=== PATIENT | female | born 1945 | race Two or more races ===

== ENCOUNTER 2021-09-12 08:16 | Outpatient (CLI) | payer OTHER | END 2021-09-12 08:29 | disposition home or self-care (01) | LOC: TOM 08:16 | PROVIDERS: ATTEND Internal Medicine Gastroenterology | DX: J44.9 Chronic obstructive pulmonary disease, unspecified (principal); Z80.0 Family history of malignant neoplasm of digestive organs ==

== ENCOUNTER 2021-09-26 07:45 | Outpatient (CLI) | payer OTHER | END 2021-09-26 07:47 | disposition home or self-care (01) | LOC: RX STUDY 07:45 | PROVIDERS: ATTEND Internal Medicine Gastroenterology | DX: R10.13 Epigastric pain (principal) ==

== ENCOUNTER 2023-12-18 14:39 | Inpatient (IN) | payer OTHER ==
[~2023-12-18] VITALS: Ht 157.5 cm; Wt 56.7 kg
[2023-12-18] MEDS ORDERED: LOSARTAN POTASS50 MG (14:57)
[2023-12-18] MEDS ORDERED: PREVACID30 M1 (14:57)
[2023-12-18] MEDS ORDERED: LEVO-T25 MCG (14:57)
[2023-12-18] MEDS ORDERED: GLUMETZA500 MG (14:57)
[2023-12-18] MEDS ORDERED: ROSUVASTATIN CA20 MG (14:57)
--- NOTE | 2023-12-18 14:58 | NUR ---
PTE ALERTA Y ORIENTADA X3 SE RECIBE EN [place] LO CUAL REFIERE QUE ES PTE DE TRANSFER PARA EL DOCTOR REDDY. REFIERE QUE NIA TUVO ALAINA CAIDA Y SE LASTIMO CADERA Y TOBILLO DERECHO. SE LE NELLA S/V Y SE UBICA
[2023-12-18] MEDS ORDERED: MORPHINE SULFATE 4 MG/ML CARTRIDGE IV PRN (21:00)
[2023-12-18] MEDS ORDERED: 0.9 % SODIUM CHLORIDE 1,000 ML IV SCH (21:00)
[2023-12-18] MEDS ORDERED: ACETAMINOPHEN 500 MG GEL..CAP PO PRN (21:00)
[2023-12-19 04:15] LABS: INR 1.2; PARTIAL THROMBOPLASTIN TIME 29.8 SECONDS (22.0-34.0); PROTHROMBIN TIME 12.9 SECONDS (9.0-11.5)
[2023-12-19 04:19] LABS: ALBUMIN 3.3 gm/dL (3.4-5.0); BILIRUBIN TOTAL 1.57 mg/dL (0.3-1.2); CALCIUM 8.9 mg/dL (8.5-10.1); CREATININE SERUM 0.74 mg/dL (0.55-1.02); GFR 76.1; GLOBULINA 3.4 G/DL (2.4-3.5); POTASSIUM 4.25 mEq/L (3.5-5.1); TOTAL PROTEIN 6.7 gm/dL (6.4-8.2)
[2023-12-19 04:27] LABS: HEMATOCRIT 39.8 % (36.0-45.00); HEMOGLOBIN 13.3 g/dL (12.0-15.00); MEAN CELL VOLUME 81.1 fL (80.00-100.00); MEAN CORPUSCULAR HEMOGLOBIN 27.2 pg (27.00-32.0); MEAN CORPUSCULAR HGB CONC 33.5 g/dl (32.0-36.0); PLATELET COUNT 233 K/uL (150-450); RED CELL DISTRIBUTION WIDTH 13.9 % (11.5-14.5)
[2023-12-19 06:09] VITALS: BP 123/59; O2SAT 99
[2023-12-19 06:21] LABS: PH,URINE 5.5 (5.0-8.0); URINE APPEARANCE Clear; URINE BILIRRUBIN Negative (NEGATIVE); URINE BLOOD Trace; URINE COLOR Yellow; URINE GLUCOSE Negative (NEGATIVE); URINE KETONE 15 (NEGATIVE); URINE LEUKOCYTE Small; URINE NITRATE Negative; URINE PROTEIN Negative (NEGATIVE)
[2023-12-19 06:25] LABS: URINE BACTERIA 45.3 uL (0.0-1933); URINE EPITHELIAL CELLS 2.7 uL (0.0-38.8); URINE RBC 67.6 uL (0.0-20.8); URINE WBC 10.1 uL (0.0-23.2)
[2023-12-19] MEDS ORDERED: IRON FUM,PS/FOLIC/BCOMP,C NO.9 1 CAP CAPSULE PO SCH (09:00)
[2023-12-19] MEDS ORDERED: FAMOTIDINE/PF 20 MG in 0.9 % SODIUM CHLORIDE 8 ML IV PUSH SCH (09:00)
[2023-12-19] MEDS ORDERED: ENOXAPARIN SODIUM 40 MG/0.4 ML SYRINGE SUBCUTANEO SCH (09:00)
[2023-12-19 09:26] LABS: ABG PH 7.435 (7.35-7.45); ABG PO2 102.5 mmHg (80-100); BASE EXCESS -1.7 mmol/l; BICARBONATE 21.7 mmol/l (23-25); Tco2 22.7 mmol/l; allen test SATISFACTORY; o2 28 %; puncture site RADIAL LEFT
[2023-12-19 10:20] VITALS: BP 143/83; O2SAT 97
[2023-12-19] MEDS ORDERED: BUDESONIDE 0.5 MG/2 ML AMPUL.NEB IH NR (11:00)
[2023-12-19] MEDS ORDERED: IPRATROPIUM/ALBUTEROL SULFATE 3 ML AMPUL.NEB IH SCH (12:00)
[2023-12-19 13:47] LABS: COL EPI 93 SECONDS (82-175)
[2023-12-19 17:32] VITALS: BP 117/61; O2SAT 97
[2023-12-19] MEDS ORDERED: BUDESONIDE 0.5 MG/2 ML AMPUL.NEB IH SCH (21:00)
[2023-12-20 00:15] VITALS: BP 105/68; O2SAT 100
[2023-12-20 10:19] VITALS: BP 155/58; O2SAT 97
[2023-12-20 16:00] VITALS: BP 126/66; O2SAT 97
[2023-12-20] MEDS ORDERED: AMINO ACIDS 1 EACH TABLET PO SCH (18:29)
[2023-12-20] MEDS ORDERED: LACTULOSE 20 G/30 ML BLIST.PACK PO ONE (19:30)
[2023-12-20] MEDS ORDERED: MAGNESIUM HYDROXIDE 30 ML BLIST.PACK PO ONE (19:30)
[2023-12-20] MEDS ORDERED: MINERAL OIL 30 ML BLIST.PACK PO ONE (19:30)
[2023-12-20] MEDS ORDERED: ACETAMINOPHEN 500 MG GEL..CAP PO SCH (20:00)
[2023-12-20 23:22] LABS: INR 1.13; PROTHROMBIN TIME 12.2 SECONDS (9.0-11.5)
[2023-12-21 00:39] VITALS: BP 114/76; O2SAT 98
[2023-12-21 08:47] VITALS: BP 134/77; O2SAT 99
[2023-12-21 18:52] VITALS: BP 151/84; O2SAT 99
[2023-12-22 00:52] VITALS: BP 131/83; O2SAT 96
[2023-12-22 06:43] LABS: INR 1.12; PROTHROMBIN TIME 12.1 SECONDS (9.0-11.5)
[2023-12-22 08:00] VITALS: BP 190/91; O2SAT 100
[2023-12-22 18:27] LABS: HEMATOCRIT 34.9 % (36.0-45.00); HEMOGLOBIN 11.5 g/dL (12.0-15.00); MEAN CELL VOLUME 81.8 fL (80.00-100.00); PLATELET COUNT 221 K/uL (150-450); RED BLOOD COUNT 4.27 M/uL (4.00-6.00); RED CELL DISTRIBUTION WIDTH 13.9 % (11.5-14.5)
[2023-12-22 18:51] LABS: ALBUMIN 2.6 gm/dL (3.4-5.0); BILIRUBIN TOTAL 0.73 mg/dL (0.3-1.2); CREATININE SERUM 0.46 mg/dL (0.55-1.02); GFR 131.72; GLOBULINA 3.2 G/DL (2.4-3.5); POTASSIUM 4.58 mEq/L (3.5-5.1); TOTAL PROTEIN 5.8 gm/dL (6.4-8.2)
[2023-12-22] MEDS ORDERED: PROMETHAZINE HCL 50 MG/ML AMPUL IM PRN (20:00)
[2023-12-22] MEDS ORDERED: MEPERIDINE HCL/PF 50 MG/ML VIAL IM PRN (20:00)
[2023-12-22] MEDS ORDERED: SODIUM CHLORIDE 0.45 % 1,000 ML IV SCH (20:00)
[2023-12-22] MEDS ORDERED: TRAMADOL HCL 50 MG TABLET PO PRN (20:00)
[2023-12-22] MEDS ORDERED: ONDANSETRON HCL 2 MG/ML VIAL IV PRN (20:00)
[2023-12-22] MEDS ORDERED: ONDANSETRON 4 MG TAB.RAPDIS PO PRN (20:00)
[2023-12-22] MEDS ORDERED: CEFAZOLIN SODIUM 1,000 MG VIAL IV ONE (21:15)
[2023-12-22] MEDS ORDERED: CIPROFLOXACIN IN 5 % DEXTROSE 400 MG/200 ML PIGGYBAG IV ONE (21:15)
[2023-12-22] MEDS ORDERED: VANCOMYCIN HCL 1,000 MG VIAL IR ONE (21:15)
[2023-12-22] MEDS ORDERED: TRANEXAMIC ACID 100MG/1ML (1000MG) AMPUL IV ONE ×2 (21:15)
[2023-12-22] MEDS ORDERED: SOD FERRIC GLUC COMPLX/SUCROSE 62.5 MG/5 ML AMPUL IV SCH (21:20)
[2023-12-22] MEDS ORDERED: SUGAMMADEX SODIUM 200 MG/2 ML VIAL IV ONE (21:30)
[2023-12-22] MEDS ORDERED: MORPHINE SULFATE 2 MG/ML CARTRIDGE IV ONE (21:55)
[2023-12-23] MEDS ORDERED: CELECOXIB 200 MG CAPSULE PO SCH (01:00)
[2023-12-23] MEDS ORDERED: CEFAZOLIN SODIUM 1,000 MG VIAL IV SCH (01:00)
[2023-12-23] MEDS ORDERED: MORPHINE SULFATE 2 MG/ML CARTRIDGE IV ONE (02:00)
[2023-12-23 03:25] VITALS: BP 137/83; O2SAT 99
[2023-12-23] MEDS ORDERED: PANTOPRAZOLE SODIUM 40 MG TABLET.DR PO SCH (09:00)
[2023-12-23] MEDS ORDERED: Cyanocobalamin/Mecobalamin 1 TAB.SL SL SCH (09:00)
[2023-12-23 09:19] VITALS: BP 106/68; O2SAT 99
[2023-12-23 09:43] VITALS: BP 106/68; O2SAT 99
[2023-12-23 17:09] VITALS: BP 108/70; O2SAT 98
[2023-12-23 23:30] VITALS: BP 91/53; O2SAT 96
[2023-12-24 07:58] LABS: HEMATOCRIT 30.8 % (36.0-45.00); HEMOGLOBIN 10.1 g/dL (12.0-15.00); MEAN CELL VOLUME 82.2 fL (80.00-100.00); MEAN CORPUSCULAR HEMOGLOBIN 26.9 pg (27.00-32.0); MEAN CORPUSCULAR HGB CONC 32.8 g/dl (32.0-36.0); PLATELET COUNT 197 K/uL (150-450); RED BLOOD COUNT 3.74 M/uL (4.00-6.00); RED CELL DISTRIBUTION WIDTH 14.1 % (11.5-14.5)
[2023-12-24 08:00] VITALS: BP 98/50; O2SAT 98
[2023-12-24] MEDS ORDERED: RIVAROXABAN 10 MG TAB PO SCH (09:00)
[2023-12-24] MEDS ORDERED: SENNA/DOCUSATE SODIUM 1 TAB TABLET PO SCH (09:00)
[2023-12-24 17:25] VITALS: BP 116/58; O2SAT 100
[2023-12-25] VITALS: BP 91/52; O2SAT 99
[2023-12-25 08:44] VITALS: BP 123/69; O2SAT 97
== END 2023-12-25 14:06 | DRG 517 ==
LOC: ER 14:39 → SURG 22:00 → SURH 22:00 → SEC-K 22:04 → SURH 12-19 02:41
PROVIDERS: General Practice; Orthopaedic Surgery; ADMIT Internal Medicine; ATTEND Internal Medicine
PROC: B246ZZZ Ultrasonography of Right and Left Heart (ICD-10-PCS; 2023-12-18)
PROC: 3E0F7GC Introduction of Other Therapeutic Substance into Respiratory Tract, Via Natural or Artificial Opening (ICD-10-PCS; 2023-12-19)
PROC: 0QR40JZ Replacement of Right Acetabulum with Synthetic Substitute, Open Approach (ICD-10-PCS; 2023-12-22)
PROC: 0QQ40ZZ Repair Right Acetabulum, Open Approach (ICD-10-PCS; principal; 2023-12-22 20:00)
DX: S72.091A Other fracture of head and neck of right femur, initial encounter for closed fracture (principal); W18.39XA Other fall on same level, initial encounter; Y92.89 Other specified places as the place of occurrence of the external cause; E03.9 Hypothyroidism, unspecified; I10 Essential (primary) hypertension; E11.9 Type 2 diabetes mellitus without complications; J44.9 Chronic obstructive pulmonary disease, unspecified; Z77.22 Contact with and (suspected) exposure to environmental tobacco smoke (acute) (chronic)

== ENCOUNTER 2024-01-14 08:39 | Outpatient (CLI) | payer OTHER ==
[~2024-01-14 08:39] MED LIST: GLUMETZA500 MG; LEVO-T25 MCG; LOSARTAN POTASS50 MG; PREVACID30 M1; ROSUVASTATIN CA20 MG
== END 2024-01-14 08:46 | disposition home or self-care (01) ==
LOC: RAD 08:39
PROVIDERS: ATTEND Orthopaedic Surgery
DX: M25.561 Pain in right knee (principal); M54.50 Low back pain, unspecified

== ENCOUNTER 2024-01-15 08:53 | Outpatient (CLI) | payer OTHER ==
[2024-01-15 10:59] LABS: ALBUMIN 3.7 gm/dL (3.4-5.0); BILIRUBIN TOTAL 0.58 mg/dL (0.3-1.2); CALCIUM 9.7 mg/dL (8.5-10.1); CREATININE SERUM 0.54 mg/dL (0.55-1.02); GFR 109.47; GLOBULINA 4.1 G/DL (2.4-3.5); MAGNESIUM 2.3 mg/dL (1.8-2.4); PHOSPHOROUS 3.1 mg/dL (2.5-4.9); POTASSIUM 4.4 mEq/L (3.5-5.1); TOTAL PROTEIN 7.8 gm/dL (6.4-8.2)
== END 2024-01-15 08:54 | disposition home or self-care (01) ==
LOC: LAB 08:53
PROVIDERS: ATTEND Orthopaedic Surgery
DX: E55.9 Vitamin D deficiency, unspecified (principal); M85.9 Disorder of bone density and structure, unspecified; E56.1 Deficiency of vitamin K; E21.3 Hyperparathyroidism, unspecified; E88.89 Other specified metabolic disorders; M81.8 Other osteoporosis without current pathological fracture